=== PATIENT | female | born 1990 | race Caucasian/White ===

== ENCOUNTER 2018-01-19 14:11 | Inpatient (IN) | payer OTHER ==
--- NOTE | 2018-01-19 15:55 | HP ---
General Information - Reason for Visit Patient here for induction of labor for gestational hypertension - General Information Maternal Age: 27 Grav: 3 Para: 2 SAB: 0 IEA: 0 Estimated Due Date: 01/26/18 Determined By: Early Ultrasound Maternal Blood Type and Rh: O Positive - Results this Serology/RPR Result: Non-Reactive Rubella Result: Non-Immune HBsAg Result: Negative HIV Result: Negative GBS Culture Result: Negative Past Medical History Delivery History: Hx Complicated Vaginal Delivery Delivery History Comment: IOL @ 33 weeks for severe PEC 2013 SVB @ 35 weeks Pertinent Past Medical History: Non-Contributory Past Medical History Comment: Migraine Pertinent Past Surgical History: None Pertinent Family History: Non-Contributory Family History Comment: Son with pyloric stenosis Lung, breast, throat Ca Diabetes - Antepartal Records Antepartal Records: Reviewed, Complicated by: - GHTN Review of Systems Constitutional: Comfortable CV Complaint: No Respiratory: Shortness of Breath: No Gastrointestinal: No Nausea/Vomiting, Normal Bowel Movement Genitourinary: No Dysuria, No Bleeding, No Leaking Fluid Musculoskeletal: No Complaint Neurological: No Headache, No Visual Changes Movement: Normal Exam Allergies/Adverse Reactions: Allergies No Known Allergies Allergy (Verified 03/29/13 02:21) Vital Signs 01/19/18 14:30 Temperature 98.9 F Pulse Rate 54 Respiratory 16 Rate Blood Pressure 128/93 (mmHg) O2 Sat by Pulse 99 Oximetry - Measurements Height: 5 ft 7 in Weight: 149 lb Weight in lbs: 149.665605 Body Mass Index (BMI): 23.3 Pre- Weight: 135 lb Weight Gained This : 14 lbs and 0 ozs - Exam Breast: Breast Exam Deferred CVA: No CVA Tenderness Extremities: No Edema Heart: Normal Rhythm/Heart Sounds HEENT: No Significant Findings Lungs: Clear Bilaterally Rectal: Rectal Exam Deferred Reflexes: DTR 2+, - - no clonus Thyroid: - - WNL @ entry to care - Abdominal Exam Abdomen Exam: Non-Tender, Fundal Height Consistent with Dates - Ultrasound/Biophysical Profile Ultrasound Status: Not Done Targeted Exam Findings See L&D Outpatient Visit Provider Note for Findings: N/A Cervical Exam: 2cm Effacement: 70% Station: -2 Presenting Part: Vertex Membrane Status: Intact Bleeding/Discharge: None EFM Findings - External Monitor Findings Baseline Heart Rate: 135 External Monitor Findings: Accelerations Present, No Pattern of Variable or Late Decelerations, Variability Moderate Contractions: Irregular, Mild, < 45 Seconds Contraction Frequency: Q 20 min Assessment/Plan - Assessment IUP @ 39+0 weeks gestation for induction of labor. No evidence metabolic acidemia. IBOW. - Obstetrical Risk Factors Obstetrical Risk Factors: Gestational Hypertension - Plan Plan: Induction Plan Comment: Admit to L&D. Begin low dose pitocin. Patient will desire epidural. Anticipate SVB. - Date/Time of Admission Date of Admission: 01/19/18 Time of Admission: 15:38
[2018-01-19] MEDS ORDERED: Oxytocin in LR* 20 UNITS/1,000 ML BAG IVPB SCH (16:00)
[2018-01-19 16:09] LABS: ABS Basophils 0.1 10^3/ul (0-0.2); ABS Eosinophils 0.1 10^3/ul (0-0.6); ABS Monocytes 0.7 10^3/ul (0-0.8); ABS Neutrophils 7.2 10^3/ul (1.5-7.7); ABS Nucleated RBC 0 10^3/ul; Eosinophil % 0.8 % (0-6); Hematocrit 34 % (35-47); Hemoglobin 11.7 g/dl (12.0-16.0); Lymphocyte % 19.9 % (25-47); Mean Corpuscular HGB Conc 35 g/dl (31-36); Mean Corpuscular Hemoglobin 31 pg (27-31); Mean Corpuscular Volume 89 fL (80-97); Mean Platelet Volume 9.9 fL (7.4-10.4); Nucleated Red Blood Cells % 0; Platelet Count 215 10^3/ul (150-450); Red Blood Count 3.81 10^6/ul (4.00-5.40); Red Cell Distribution Width 14 % (10.5-15)
[2018-01-20 01:24] LABS: Urine Appearance Clear; Urine Blood Negative (Negative); Urine Color Yellow; Urine Ketones Negative (Negative); Urine Protein Negative (Negative); Urine Urobilinogen Negative (Negative)
[2018-01-20] MEDS ORDERED: Promethazine INJ(RESTRICTED)* 25 MG/ML 1 ML VIAL IV PRN (02:25)
[2018-01-20] MEDS ORDERED: Nalbuphine* 10 MG/ML 1 ML VIAL IV PRN (02:25)
[2018-01-20] MEDS ORDERED: Nalbuphine* 10 MG/ML 1 ML VIAL ONE (02:36)
[2018-01-20] MEDS ORDERED: Promethazine INJ(RESTRICTED)* 25 MG/ML 1 ML VIAL ONE (02:37)
[2018-01-20] MEDS ORDERED: Oxytocin in LR* 20 UNITS/1,000 ML BAG IVPB SCH ×2 (09:00→13:00)
[2018-01-20] MEDS ORDERED: OBEPIDURAL* 250 ML EPIDURAL ONE (10:22)
[2018-01-20] MEDS ORDERED: Famotidine TAB* 20 MG PO PRN (11:08)
[2018-01-20] MEDS ORDERED: Phenylephrine IV* 40 MCG/ML 10 ML SYRINGE IV PUSH PRN (11:08)
[2018-01-20] MEDS ORDERED: Sodium Citrate/Citric Acid* 15 ML UDC PO PRN (11:08)
[2018-01-20] MEDS ORDERED: OBEPIDURAL* 250 ML EPIDURAL SCH (12:00)
[2018-01-20] MEDS ORDERED: Dibucaine 1% 28.35 GM TUBE PR PRN (12:54)
[2018-01-20] MEDS ORDERED: Witch Hazel PAD* JAR TOPICAL PRN (12:54)
[2018-01-20] MEDS ORDERED: Acetaminophen TAB* 325 MG PO PRN (12:54)
[2018-01-20] MEDS ORDERED: Glycerin ADULT SUPP PR PRN (12:54)
--- NOTE | 2018-01-20 13:06 | PROCNOTE ---
[facility] OB: Delivery Note - Delivery A Date of : 01/20/18 [place] Sex: Female Score 1 Minute: 4 Score 5 Minutes: 8 Gestational Age in Weeks and Days at Delivery: 39 Weeks and 1 Days Delivery Method: Spontaneous Vaginal Labor: Induced Did Patient attempt ?: N/A, No Previous Amniotic Fluid: Clear Estimated Blood Loss: 300 Anesthesia/Analgesia: CEI for Labor, Other - lidocaine/local Delivered By: Agustina Lewis - Nursery Level of Nursery: Regular/Bedside - 2nd degree - Perineum Perineal Injury: Perineal Laceration Perineal Repair: By Delivering Practioner - Events Delivery Events of Note Comment: cord avulsion
[2018-01-20] MEDS: Ibuprofen TAB* 600 MG PO PRN ×2 (14:37→20:20)
[2018-01-20] MEDS: Docusate CAP* 100 MG PO SCH ×2 (14:38→20:20)
[2018-01-20] MEDS: Simethicone TAB* 80 MG TAB.CHEW PO SCH (21:03)
[2018-01-21 06:43] LABS: ABS Basophils 0.1 10^3/ul (0-0.2); ABS Eosinophils 0.1 10^3/ul (0-0.6); ABS Lymphocytes 2.4 10^3/ul (1.0-4.8); ABS Monocytes 0.6 10^3/ul (0-0.8); ABS Neutrophils 7.5 10^3/ul (1.5-7.7); ABS Nucleated RBC 0 10^3/ul; Eosinophil % 0.7 % (0-6); Hematocrit 27 % (35-47); Hemoglobin 9.3 g/dl (12.0-16.0); Lymphocyte % 22.8 % (25-47); Mean Corpuscular HGB Conc 35 g/dl (31-36); Mean Corpuscular Hemoglobin 31 pg (27-31); Mean Corpuscular Volume 90 fL (80-97); Mean Platelet Volume 10.4 fL (7.4-10.4); Nucleated Red Blood Cells % 0; Platelet Count 159 10^3/ul (150-450); Red Blood Count 2.96 10^6/ul (4.00-5.40); Red Cell Distribution Width 14 % (10.5-15); White Blood Count 10.7 10^3/ul (3.5-10.8)
[2018-01-21 07:55] VITALS: BP 131/71
[2018-01-21] MEDS: Docusate CAP* 100 MG PO SCH (08:35)
[2018-01-21] MEDS: Ibuprofen TAB* 600 MG PO PRN (08:35)
[2018-01-21] MEDS ORDERED: Ferrous Gluconate TAB* 324 MG TAB PO SCH (09:00)
== END 2018-01-21 14:20 | disposition home or self-care (01) | DRG 560 ==
LOC: MCHOBOUT 14:11 → MCHOB 15:38
PROVIDERS: ADMIT Obstetrics & Gynecology; ATTEND Obstetrics & Gynecology
PROC: 10E0XZZ Delivery of Products of Conception, External Approach (ICD-10-PCS; principal; 2018-01-20)
PROC: 10907ZC Drainage of Amniotic Fluid, Therapeutic from Products of Conception, Via Natural or Artificial Opening (ICD-10-PCS; 2018-01-20)
PROC: 4A1HXCZ Monitoring of Products of Conception, Cardiac Rate, External Approach (ICD-10-PCS; 2018-01-20)
PROC: 3E033VJ Introduction of Other Hormone into Peripheral Vein, Percutaneous Approach (ICD-10-PCS; 2018-01-20)
PROC: 0KQM0ZZ Repair Perineum Muscle, Open Approach (ICD-10-PCS; 2018-01-20)
DX: O13.4 Gestational [pregnancy-induced] hypertension without significant proteinuria, complicating childbirth (principal); Z37.0 Single live birth; Z3A.39 39 weeks gestation of pregnancy; O69.89X0 Labor and delivery complicated by other cord complications, not applicable or unspecified; O70.1 Second degree perineal laceration during delivery
CPT/HCPCS: 36415; 81003; 85025; 86850; 86900; 86901; A9270-GY; J2300; J2550